=== PATIENT | female | born 1965 | race Caucasian/White ===

== ENCOUNTER 2016-09-15 12:33 | Emergency (ER) | payer BC ==
[~2016-09-15] VITALS: Ht 160 cm; Wt 114.1 kg
[~2016-09-15 12:33] MED LIST: ASPIRIN 81M81 MG/TA2 PO; GLUCOPHAGE1000 MG PO; GLUCOSAMINE SU500 M2 PO; GLUCOTROL10 MG PO; LASIX 20MG TABL20 MG PO; MULTI VITAMINS1 TAB PO; NORCO 325 MG-51 TAB PO; OMEGA 31000 MG PO; PREMPHASE1 TAB PO; TUMERIC PO; VICTOZA6 MG/ML SQ; ZESTRIL 20MG TA20 MG PO
[2016-09-15 12:34] VITALS: BP 160/83; PULSE 84; TEMP 98.3
[2016-09-15] MEDS ORDERED: TRICOR 48MG48 MG PO (13:09)
[2016-09-15 13:29] LABS: BASO # 0.1 (0.0-0.2); BASO % 0.8 % (0.0-2.0); EOS # 1.3 (0.0-0.7); EOS % 10.7 % (0-4.0); GRAN # 7.4 (1.4-6.5); GRAN % 62.2 % (42.2-75.2); HEMATOCRIT 41.2 % (37.0-47.0); HEMOGLOBIN 13.4 g/dl (12.5-16.0); LYMPH # 2.4 (1.2-3.4); LYMPH % 20.5 % (20.0-51.0); MEAN CELL VOLUME 92 fl (80.0-100.0); MEAN CORPUSCULAR HEMOGLOBIN 30 pg (27.0-31.0); MEAN CORPUSCULAR HGB CONC 33 g/dl (33.0-37.0); MEAN PLATELET VOLUME 10.8 fl (7.4-10.4); MONO # 0.7 (0.1-0.6); MONO % 5.5 % (1.7-9.3); PLATELET COUNT 217 K/mm3 (130-400); REDCELL DISTRIBUTION WIDTH-CV 13.2 % (11.5-14.5); WHITE BLOOD COUNT 11.9 K/mm3 (4.8-10.8)
[2016-09-15 13:31] LABS: ADJUSTED CALCIUM 9.5 mg/dL (8.4-10.2); ALANINE AMINOTRANSFERASE 24 U/L (9-52); ALBUMIN 4.1 gm/dL (3.5-5.0); ALKALINE PHOSPHATASE 36 U/L (50-136); ANION GAP 12 mmol/L (7-16); BILIRUBIN,TOTAL 0.6 mg/dL (0.0-1.0); BLOOD UREA NITROGEN 20 mg/dL (7-17); CALCIUM 9.6 mg/dL (8.4-10.2); CARBON DIOXIDE 25 mmol/L (22-30); CHLORIDE 104 mmol/L (98-107); CREATININE, serum 0.65 mg/dL (0.52-1.25); GLUCOSE 179 mg/dL (74-106); POTASSIUM 4.1 mmol/L (3.4-5.0); SODIUM 141 mmol/L (137-145); TOTAL PROTEIN 7.3 gm/dL (6.4-8.2)
[2016-09-15 13:44] LABS: TROPONIN-I < 0.012 ng/mL (0.000-0.034)
== END 2016-09-15 14:12 | disposition home or self-care (01) ==
LOC: COL.ER 12:33
PROVIDERS: Family Medicine
DX: R42 Dizziness and giddiness (principal); R11.0 Nausea; R53.1 Weakness; E11.9 Type 2 diabetes mellitus without complications; Z79.84 Long term (current) use of oral hypoglycemic drugs

== ENCOUNTER → 2016-10-16 | Outpatient (CLI) | payer BC ==
[2005-05-07 16:45] VITALS: TEMP 98.1
[~2016-10-16] MED LIST changes: +TRICOR 48MG48 MG PO
== END ==
LOC: COL.VAS 12:03 → COL.CARD 13:20
DX: I28.8 Other diseases of pulmonary vessels (principal); R55 Syncope and collapse; R00.2 Palpitations

== ENCOUNTER → 2017-05-05 | Outpatient (CLI) | payer BC ==
[2005-05-07 16:45] VITALS: TEMP 98.1
== END ==
LOC: MC.RAD 09:20
DX: Z12.31 Encounter for screening mammogram for malignant neoplasm of breast (principal)

== ENCOUNTER → 2018-06-14 | Outpatient (CLI) | payer BC ==
[2005-05-07 16:45] VITALS: TEMP 98.1
== END ==
LOC: MC.RAD 14:49
DX: Z12.31 Encounter for screening mammogram for malignant neoplasm of breast (principal)

== ENCOUNTER → 2019-06-23 | Outpatient (CLI) | payer BC ==
[2005-05-07 16:45] VITALS: TEMP 98.1
== END ==
LOC: MC.RAD 15:49
DX: Z12.31 Encounter for screening mammogram for malignant neoplasm of breast (principal)

== ENCOUNTER → 2020-06-25 | Outpatient (CLI) | payer BC ==
[2005-05-07 16:45] VITALS: TEMP 98.1
== END ==
LOC: MC.RAD 11:21
DX: Z12.31 Encounter for screening mammogram for malignant neoplasm of breast (principal)

== ENCOUNTER → 2021-06-26 | Outpatient (CLI) | payer BC ==
[2005-05-07 16:45] VITALS: TEMP 98.1
== END ==
LOC: MC.RAD 06:55
DX: Z12.31 Encounter for screening mammogram for malignant neoplasm of breast (principal)

== ENCOUNTER → 2022-07-23 | Outpatient (CLI) | payer BC ==
[~2022-07-23] MED LIST changes: +AMABELZ 1 MG-01 EACH PO; +COLACE 100100 MG/CAP PO; +MAGNESIUM250 M1 PO; +OZEMPIC1 MG/0.71 SQ; +TRICOR145 MG PO; +VESICARE10 MG PO; +VITAMIN C500 MG PO
== END ==
LOC: MC.RAD 08:17
DX: Z12.31 Encounter for screening mammogram for malignant neoplasm of breast (principal)